=== PATIENT | female | born 1935 | race Caucasian/White ===

== ENCOUNTER 2016-06-16 08:00 | Outpatient (CLI) | payer MEDICARE, BC | END 2016-06-16 08:01 | disposition home or self-care (01) | DX: E03.9 Hypothyroidism, unspecified (principal); E78.5 Hyperlipidemia, unspecified; G43.909 Migraine, unspecified, not intractable, without status migrainosus; K21.9 Gastro-esophageal reflux disease without esophagitis ==

== ENCOUNTER 2016-10-02 12:25 | Outpatient (CLI) | payer MEDICARE, BC ==
--- NOTE | 2016-10-02 13:59 | XRAY Report ---
THREE VIEW RIGHT KNEE: 10/02/2016 CLINICAL INDICATION: Pain. FINDINGS: AP, lateral, and sunrise views of the right knee are compared to previous films of 016. There is no evidence of fracture or dislocation. The joint spaces are preserved. No effusion is prese nt. IMPRESSION: NORMAL RIGHT KNEE, UNCHANGED. JOB #: [id number] EXT JOB #:[id number]
--- NOTE | 2016-10-02 14:16 | XRAY Preliminary Report ---
Exam: XR Knee 3 View RT IMPRESSION: Minimal degenerative changes, much less than expected for age. [facility] SITE ID: [id number]
== END 2016-10-02 12:26 | disposition home or self-care (01) ==
LOC: DI 12:25
PROVIDERS: ATTEND Nurse Practitioner Family
DX: M25.561 Pain in right knee (principal)

== ENCOUNTER 2016-11-23 09:19 | Outpatient (CLI) | payer MEDICARE, BC ==
--- NOTE | 2016-11-23 16:05 | MRI Report ---
EXAM: RIGHT KNEE MRI WITHOUT CONTRAST EXAM DATE: 11/23/2016 10:00 AM. CLINICAL HISTORY: Right knee pain and locking for 3 years. COMPARISON: Right knee radiography from 10/02/2016. TECHNIQUE: Multiplanar, multisequence T1-weighted and fluid-sensitive sequences of the knee without c ontrast. Other: None. FINDINGS: Bones and articular cartilage: Focal grade 3-4 chondromalacia and mild subcortical marrow edema at th e anterior medial aspect of the medial tibial plateau. Focal grade 3-4 chondromalacia and minimal sub cortical marrow edema at the posteromedial aspect of the lateral tibial plateau. Grade 2-3 chondromal acia at the femoral condyles. Grade 3-4 chondromalacia and mild subcortical marrow edema at the media l patellar facet and medial trochlear facet. Full-thickness articular cartilage defects and/or fissur es within the femoral trochlear groove. No patellar subluxation. Enthesophytes at the anterosuperior aspect of the patella. Medial Meniscus: The medial meniscus is intact. Lateral Meniscus: The lateral meniscus is intact. Cruciate Ligaments: The anterior and posterior cruciate ligaments are intact. Collateral Ligaments: The medial collateral and lateral collateral ligamentous structures are intact. Tendons: The quadriceps, patellar, semimembranosus, and popliteus tendons are unremarkable. Musculature: No edema or fatty atrophy. Other: No effusion. No popliteal cyst. No loose bodies. The medial and lateral retinacula are intact . The subcutaneous tissues and fat pads are unremarkable. IMPRESSION: 1. Tricompartmental chondromalacia. 2. No ligament or meniscal injury. 3. Patellar enthesophytes. [facility] MUSCULOSKELETAL RADIOLOGY SECTION Referring Provider Line: [phone] SITE ID: [id number]
== END 2016-11-23 09:20 | disposition home or self-care (01) ==
LOC: DI 09:19
PROVIDERS: ATTEND Registered Nurse
DX: M94.261 Chondromalacia, right knee (principal); M76.891 Other specified enthesopathies of right lower limb, excluding foot

== ENCOUNTER 2016-11-23 09:21 | Outpatient (CLI) | payer MEDICARE, BC ==
--- NOTE | 2016-11-24 17:56 | Mammography Report ---
DIGITAL SCREENING MAMMOGRAM: 11/23/2016 CLINICAL INDICATION: A 81-year-old with history of left breast cancer status post lumpectomy and rad iation therapy for screening. COMPARISON: 10/2015, 11/2013, 09/2012, 09/2011, 09/2010, 10/2009, 08/2009. TECHNIQUE: Routine CC and MLO projections were obtained of the breasts. FINDINGS: The breasts demonstrate scattered fibroglandular densities bilaterally. Postoperative and posttreatment changes in the left breast are stable. Intramammary lymph nodes are stable. Coarse, typically benign calcifications are stable. No suspicious masses, clustered microcalcifications, or regions of architectural distortion are identified. IMPRESSION: BENIGN FINDINGS. RECOMMENDATION: Routine annual screening unless otherwise clinically indicated. BI-RADS category 2, benign findings. STANDARD QUALIFYING STATEMENTS 1. This examination was reviewed with the aid of Computer-Aided Detection (CAD). 2. A negative or benign imaging report should not delay biopsy if clinically suspicious findings are present. Consider surgical consultation if warranted. More than 5% of cancers are not identified by i maging. 3. Dense breasts may obscure an underlying neoplasm. JOB #: [id number] EXT JOB #:[id number]
== END 2016-11-23 09:22 | disposition home or self-care (01) ==
LOC: DI 09:21
PROVIDERS: ATTEND Registered Nurse
DX: Z12.31 Encounter for screening mammogram for malignant neoplasm of breast (principal); Z85.3 Personal history of malignant neoplasm of breast
CPT/HCPCS: 77067

== ENCOUNTER 2017-07-29 09:14 | Day surgery (SDC) | payer MEDICARE, BC ==
[~2017-07-29 09:14] MED LIST: BRIMONIDINE 0.2% OPHTH DROPS 5 ML ONE; BSS/LIDOCAINE/EPINEPHRINE 1 ML SYRINGE ONE; CYCLOPENTOLATE 1% OPHTH DROPS 2 ML ONE; EPINEPHrine 1 MG/ML AMP ONE; KETOROLAC 0.45% OPHTH DROPS ONE; PHENYLEPHRINE 2.5% OPHTH 2 ML DROPS ONE; PROPARACAINE 0.5% OPHTH DROPS 15 ML ONE; TIMOLOL 0.5% OPHTH DROPS ONE; TRIAMCIN/MOXIFLOX OPHTHALMIC 0.6 ML VIAL IO ONE
[2017-07-29] MEDS ORDERED: LACTATED RINGERS 500 ML IV ONE (09:42)
[2017-07-29] MEDS ORDERED: PHENYLEPHRINE 2.5% OPHTH 2 ML DROPS LEFTEYE ONE (09:50)
[2017-07-29] MEDS ORDERED: PROPARACAINE 0.5% OPHTH DROPS 15 ML LEFTEYE ONE ×2 (09:50→10:53)
[2017-07-29] MEDS ORDERED: KETOROLAC 0.45% OPHTH DROPS LEFTEYE ONE (09:50)
[2017-07-29] MEDS ORDERED: CYCLOPENTOLATE 1% OPHTH DROPS 2 ML LEFTEYE ONE (09:50)
[2017-07-29] MEDS ORDERED: MIDAZOLAM 2 MG/2 ML VIAL IVP ONE (10:45)
[2017-07-29] MEDS ORDERED: VANCOMYCIN OPHTHALMI 8MG/0.8ML 8 MG/0.8 ML SYRINGE IO ONE (10:51)
[2017-07-29] MEDS ORDERED: BSS/LIDOCAINE/EPINEPHRINE 1 ML SYRINGE IO ONE (10:52)
[2017-07-29] MEDS ORDERED: BRIMONIDINE 0.2% OPHTH DROPS 5 ML OPTH ONE (10:52)
[2017-07-29] MEDS ORDERED: EPINEPHrine 1 MG/ML AMP IR ONE (10:52)
[2017-07-29] MEDS ORDERED: CHONDR SULF/HYALURONATE SYRINGE IO ONE (10:53)
[2017-07-29] MEDS ORDERED: TIMOLOL 0.5% OPHTH DROPS OPTH ONE (10:53)
[2017-07-29 11:10] VITALS: BP 132/70
--- NOTE | 2017-07-29 16:51 | OPERATIVE REPORT ---
DATE OF SERVICE: 07/29/2017 Physician: Antonio Upton MD PREOPERATIVE DIAGNOSIS: Visually significant cataract, left eye. Cataract surgery was performed on the right eye on 31 October 2015. POSTOPERATIVE DIAGNOSIS: Visually significant cataract, left eye. Cataract surgery was performed on the right eye on 31 October 2015. PROCEDURE: Phacoemulsification with posterior chamber intraocular lens implant, left eye. SURGEON: Antonio Upton MD ANESTHESIA: Monitored anesthesia care. COMPLICATIONS: None. OPERATIVE INDICATIONS: This is an 82-year-old woman with progressive vision loss in the left eye due to 2+ nuclear sclerotic and vacuole cataract. Best corrected visual acuity was 20/30 with glare to 20/100 in the left eye. Indications for surgery are overall decrease in vision, difficulty reading; difficulty driving in low light or at night, difficulty driving at night because of headlights from other vehicles, and difficulty with glare or bright lights in any situation. She was consented at length concerning risks and benefits of cataract surgery. Afterward, she expressed a desire to proceed with surgery. OPERATIVE PROCEDURE: The patient was taken to OR #3 and placed under monitored anesthesia care. A surgical timeout was conducted confirming correct patient, correct procedure, and correct surgical site. She was given topical anesthesia, and then prepped and draped in the usual sterile fashion. The eye was entered at the 6 and 3 o'clock positions. Intracameral Shugarcaine was injected into the anterior chamber, followed by Viscoat. A continuous-tear curvilinear capsulorrhexis was performed. Nucleus was hydrodissected and phacoemulsified. The cortex was evacuated using automated infusion and aspiration. Provisc was injected in the capsular bag, and a 23.0 diopter intraocular lens was inserted in the bag. Approximately 0.7 mL of a mixture of triamcinolone and moxifloxacin and vancomycin was injected subconjunctivally in the superior quadrant for infection and inflammation prophylaxis. I and A was used to evacuate the viscoelastic material. The eye was inflated to physiologic pressure using balanced salt solution and found to be watertight. The patient was taken from the operating room in good condition and given postop instructions. TD: 07/29/2017 11:10
== END 2017-07-29 09:15 | disposition home or self-care (01) ==
LOC: SDS 09:14
PROVIDERS: ATTEND Ophthalmology
PROC: 08RK3JZ Replacement of Left Lens with Synthetic Substitute, Percutaneous Approach (ICD-10-PCS; principal; 2017-07-29 10:30)
DX: H25.812 Combined forms of age-related cataract, left eye (principal)
CPT/HCPCS: 66984; A9270; J3490; V2632

== ENCOUNTER 2017-08-11 09:45 | Outpatient (CLI) | payer MEDICARE, BC ==
--- NOTE | 2017-08-11 14:09 | MRI Report ---
Procedure Date: 08/11/2017 Accession Number: [id number] / [id number] Procedure: MRI - Knee LT W/O CPT Code: FULL RESULT: EXAM: LEFT KNEE MRI WITHOUT CONTRAST EXAM DATE: 08/11/2017 10:32 AM. CLINICAL HISTORY: Chronic knee pain. COMPARISON: None. TECHNIQUE: Multiplanar, multisequence T1-weighted and fluid-sensitive sequences of the knee without contrast. Other: None. FINDINGS: Bones: No fractures or subluxations. No marrow edema. No bone lesions. Articular Cartilage: Chondromalacia patellae grade 1 affecting the lateral patellar facet. Chondromalacia patella grade 3 in the interfacet ridge and medial facet. Mild thinning of the hyaline cartilage of the medial compartment. The lateral compartment cartilage appears normal. Medial Meniscus: Truncation of the free margin of the medial meniscus consistent with a tear. Oblique undersurface tear of the body of the medial meniscus. Lateral Meniscus: The lateral meniscus is intact. Cruciate Ligaments: The anterior and posterior cruciate ligaments are intact. Collateral Ligaments: The medial collateral and lateral collateral ligamentous structures are intact. Tendons: The quadriceps, patellar, semimembranosus, and popliteus tendons are unremarkable. Musculature: No edema or fatty atrophy. Other: Small joint effusion. No popliteal cyst. No loose bodies. The medial and lateral retinacula are intact. The subcutaneous tissues and fat pads are unremarkable. IMPRESSION: 1. Mild patellofemoral osteoarthritis. Minimal medial compartment osteoarthritis. 2. Degenerative tear of the body of the medial meniscus. [facility] MUSCULOSKELETAL RADIOLOGY SECTION
--- NOTE | 2017-08-11 14:24 | XRAY Report ---
Procedure Date: 08/11/2017 Accession Number: [id number] / [id number] Procedure: XR - Chest 2 View X-Ray CPT Code: 64360 FULL RESULT: EXAM: CHEST RADIOGRAPHY EXAM DATE: 08/11/2017 10:17 AM. CLINICAL HISTORY: Acute upper respiratory infection. COMPARISON: 12/03/2006. TECHNIQUE: 2 views. FINDINGS: Lungs/Pleura: No focal consolidation or evidence of edema. No pleural effusion or pneumothorax. Mediastinum: Normal cardiomediastinal contour. Other: Surgical clips in the left breast/axilla. IMPRESSION: No acute cardiopulmonary abnormality. [facility]
--- NOTE | 2017-08-11 14:35 | XRAY Report ---
Procedure Date: 08/11/2017 Accession Number: [id number] / [id number] Procedure: XR - Knee 3 View LT CPT Code: FULL RESULT: EXAM: LEFT KNEE RADIOGRAPHY EXAM DATE: 08/11/2017 10:18 AM. CLINICAL HISTORY: Left knee pain COMPARISON: None. TECHNIQUE: 3 views. FINDINGS: Bones: Suprapatellar spur. No fracture or bone lesion. Joints: Normal alignment. Joint spaces are maintained. No effusion. Soft Tissues: Unremarkable. IMPRESSION: No acute bony abnormality or significant arthritic change. [facility]
== END 2017-08-11 09:46 | disposition home or self-care (01) ==
LOC: DI 09:45
PROVIDERS: ATTEND Nurse Practitioner Family
DX: M17.12 Unilateral primary osteoarthritis, left knee (principal); S83.242A Other tear of medial meniscus, current injury, left knee, initial encounter; J06.9 Acute upper respiratory infection, unspecified
CPT/HCPCS: 71046

== ENCOUNTER 2017-09-16 08:57 | Outpatient (CLI) | payer MEDICARE, BC | END 2017-09-16 08:58 | disposition home or self-care (01) | LOC: DI 08:57 | PROVIDERS: ATTEND Registered Nurse | DX: R06.00 Dyspnea, unspecified (principal); I34.0 Nonrheumatic mitral (valve) insufficiency | CPT/HCPCS: 93306 ==

== ENCOUNTER 2018-09-08 13:28 | Outpatient (CLI) | payer MEDICARE, BC ==
--- NOTE | 2018-09-09 08:53 | DEXA Report ---
Reason: ASYMPTOMATIC MENOPAUSAL STATE Procedure Date: 09/08/2018 Accession Number: [id number] / [id number] Procedure: DEX - Dexa Spine and/or Hip CPT Code: FULL RESULT: EXAM: Dexa Spine and/or Hip DATE: 09/08/2018 1:58 PM CLINICAL HISTORY: ASYMPTOMATIC MENOPAUSAL STATE TECHNIQUE: Dual energy x-ray absorptiometry (DXA) was performed on a [employer] System. Regions measured are the AP Spine, femoral neck, and if needed forearm. COMPARISON: None. In accordance with the International Society for Clinical Densitometry (ISCD) guidelines, data from previous exams may be reanalyzed using current recommendations and techniques. This is done to allow a more accurate basis for comparison with the current study. FINDINGS: The data for the lumbar spine is as follows: BMD (g/cm/cm) T-SCORE Z-SCORE REGION L1 1.021 -0.9 0.6 L2 1.264 0.5 2.1 L3 1.307 0.9 2.4 L4 1.450 2.1 3.6 TOTAL 1.276 0.8 2.3 NOTE: All evaluable vertebrae are used for classification The data for the hip is as follows: BMD (g/cm/cm) T-SCORE Z-SCORE REGION Neck 0.811 -1.6 0.4 TOTAL 0.922 -0.7 1.2 NOTE: The femoral neck or total proximal femur, whichever is lowest, is used for classification. IMPRESSION: THE WHO CLASSIFICATION BASED ON THE INTERNATIONAL REFERENCE STANDARD IS OSTEOPENIA. THE FRACTURE RISK IS INCREASED. RECOMMENDATION: Patients with diagnosis of osteoporosis or osteopenia should have regular bone mineral density assessment. For those eligible for Medicare, routine testing is allowed once every 2 years. Testing frequency can be increased for patients who have rapidly progressing disease or for those who are receiving medical therapy to restore bone mass. COMMENT: World Health Organization (WHO) definitions for osteoporosis and osteopenia: NORMAL BMD: T-score at -1.0 or higher, fracture risk is low OSTEOPENIA BMD: T-score between -1.0 and -2.5, fracture risk is increased. OSTEOPOROSIS BMD: T-score at -2.5 or lower, fracture risk is high. National Osteoporosis Foundation recommends: 1. Obtain adequate dietary calcium (at least 1200 mg per day) and vitamin D (400-800 international units per day). 2. Participate, as appropriate, in regular weightbearing and muscle-strengthening exercise. 3. Avoid tobacco use and reduce alcohol and caffeine intake. 4. For more detailed information see the website at www.NOF.org.
== END 2018-09-08 13:29 | disposition home or self-care (01) ==
LOC: DI 13:28
PROVIDERS: ATTEND Registered Nurse
DX: M85.89 Other specified disorders of bone density and structure, multiple sites (principal); Z78.0 Asymptomatic menopausal state
CPT/HCPCS: 77080

== ENCOUNTER 2018-09-08 13:30 | Outpatient (CLI) | payer MEDICARE, BC ==
--- NOTE | 2018-09-09 08:11 | Mammography Report ---
Reason: ENCOUNTER FOR SCREENING MAMMOGRAM FOR MALIGNANT NE Procedure Date: 09/08/2018 Accession Number: [id number] / [id number] Procedure: KATIE - Screening Mammo w/Rod CPT Code: FULL RESULT: EXAM: Screening Mammo w/Rod DATE: 09/08/2018 2:12 PM CLINICAL HISTORY: Screening encounter. Personal history of left breast cancer status post lumpectomy in 2005 with radiation. TECHNIQUE: (B) - Bilateral CC and MLO views were obtained. Right laterally exaggerated CC views obtained. COMPARISON: 11/23/2016 through 10/19/2012. PARENCHYMAL PATTERN: (A) - The breast(s) demonstrate(s) scattered fibroglandular densities. FINDINGS: Posttreatment changes in the left breast are essentially unchanged, typically benign. There are no suspicious masses, calcifications, or areas of distortion. IMPRESSION: Benign findings. BI-RADS category 2. RECOMMENDATION: (ANNUAL) - Recommend routine annual screening mammography. BI-RADS CATEGORY: (2) - Benign Findings. STANDARD QUALIFYING STATEMENTS: 1. This examination was not reviewed with the aid of Computer-Aided Detection (CAD). 2. A negative or benign imaging report should not preclude biopsy if clinically suspicious findings are present. 3. Dense breasts may obscure an underlying neoplasm. 4. This examination was reviewed with the aid of 3D breast imaging (tomosynthesis).
== END 2018-09-08 13:31 | disposition home or self-care (01) ==
LOC: DI 13:30
PROVIDERS: ATTEND Registered Nurse
DX: Z12.31 Encounter for screening mammogram for malignant neoplasm of breast (principal); Z08 Encounter for follow-up examination after completed treatment for malignant neoplasm; Z85.3 Personal history of malignant neoplasm of breast
CPT/HCPCS: 77063; 77067

== ENCOUNTER 2019-11-20 09:32 | Outpatient (CLI) | payer MEDICARE, BC ==
--- NOTE | 2019-11-20 12:23 | XRAY Report ---
PROCEDURE: Knee Standing BILAT INDICATIONS: BILATERAL PRIMARY OSTEOARTHRITIS OF KNEE TECHNIQUE: 3 views of the left knee, and 3 views of the right knee. COMPARISON: Knee Xray 09/06/17 FINDINGS: Bones: No acute fractures or dislocations. No suspicious bony lesions. Joint spaces demonstrate mi ld bilateral medial compartment narrowing, relatively unchanged. Mild bilateral patellofemoral narrow ing. Small patellar spurs are noted. No erosions. Soft tissues: No knee joint effusions. No suspicious soft tissue calcification. IMPRESSION: Stable mild bilateral medial and patellofemoral narrowing, suggestive of osteoarthritis. Reviewed by: Yvonne Christina MD on 11/20/2019 12:22 PM PDT Approved by: Yvonne Christina MD on 11/20/2019 12:22 PM PDT Station ID: [id number]
== END 2019-11-20 09:33 | disposition home or self-care (01) ==
LOC: DI.S 09:32
PROVIDERS: ATTEND Registered Nurse
DX: M17.0 Bilateral primary osteoarthritis of knee (principal)
CPT/HCPCS: 73565

== ENCOUNTER 2020-09-03 14:00 | Outpatient (CLI) | payer MEDICARE, BC | END 2020-09-03 23:59 | disposition short-term general hospital (02) | LOC: EMS 14:00 | DX: R42 Dizziness and giddiness (principal); R07.9 Chest pain, unspecified; R29.91 Unspecified symptoms and signs involving the musculoskeletal system; R20.0 Anesthesia of skin | CPT/HCPCS: A0425; A0429 ==

== ENCOUNTER 2020-09-16 15:06 | Outpatient (CLI) | payer MEDICARE, BC ==
--- NOTE | 2020-09-16 18:16 | Ultrasound Report ---
PROCEDURE: Head or Neck Soft Tissue INDICATIONS: MULTINODULAR GOITER TECHNIQUE: Real-time scanning was performed of the thyroid gland, with image documentation. COMPARISON: None. FINDINGS: Right: Right thyroid lobe is heterogeneous and lobulated in appearance with simple ill-defined thyro id nodules. The largest 2 will be measured below. Right thyroid lobe measures 5.2 x 3.1 x 2.1 cm. Left: Left thyroid lobe is atrophied and heterogeneous in appearance. No focal nodules identified. L eft thyroid lobe measures 3.3 x 1.0 x 0.8 cm. Isthmus: 3 mm Thyroid nodules: Nodule 1: Right superior thyroid lobe. Size: 1.1 x 0.6 x 0.9 cm. Orientation: Wider than tall Composition: Solid Echogenicity: Hypoechoic Margins: Smooth Echogenic foci: None. Total points: 4 Overall assessment: TI-RADS 4, moderately suspicious. Nodule 2: Right mid/posterior Size: 2.1 x 1.5 x 1.6 cm Orientation: Wider than tall Composition: Solid Echogenicity: Isoechoic Margins: Smooth Echogenic foci: None Total points: 3 Overall assessment: TI-RADS 3, mildly suspicious IMPRESSION: Heterogeneous thyroid gland with atrophic left thyroid lobe. Multiple ill-defined thyroid nodules mos t pronounced on the right side with the 2 largest, measurable nodules identified. These nodules do no t meet consensus criteria for fine-needle aspiration at this time. Recommend continued clinical surve illance with imaging follow-up as described below. ACR TI-RADS definitions and recommendations: TI-RADS 1 (benign): 0 points. FNA not needed. TI-RADS 2 (not suspicious): 2 points. FNA not needed. TI-RADS 3 (mildly suspicious): 3 points. ? FNA if 2.5 cm or larger, follow up if 1.5 cm or larger (at 1, 3, and 5 years). TI-RADS 4 (moderately suspicious): 4-6 points. ? FNA if 1.5 cm or larger, follow up if 1 cm or larger (at 1, 2, 3, and 5 years). TI-RADS 5 (highly suspicious): 7 points or more. ? FNA if 1 cm or larger, follow up if 0.5 cm or larger (every year for 5 years). Reviewed by: Maxime Jasso MD on 09/16/2020 6:15 PM PDT Approved by: Maxime Jasso MD on 09/16/2020 6:15 PM PDT Station ID: [id number]
== END 2020-09-16 15:07 | disposition home or self-care (01) ==
LOC: DI 15:06
PROVIDERS: ATTEND Nurse Practitioner Family
DX: E04.2 Nontoxic multinodular goiter (principal)

== ENCOUNTER 2020-09-26 14:46 | Outpatient (CLI) | payer MEDICARE, BC ==
[2020-09-26 19:57] LABS: BASOPHILS % (AUTO) 0.8 %; EOSINOPHILS # (AUTO) 0.2 10^3/uL (0.0-0.7); HCT - HEMATOCRIT 39.8 % (37.0-47.0); HGB - HEMOGLOBIN 12.6 g/dL (12.0-16.0); LYMPHOCYTES # (AUTO) 1.2 10^3/uL (1.5-3.5); LYMPHOCYTES % (AUTO) 24.5 %; MEAN CORPUSCULAR HEMOGLOBIN 30.2 pg (27.0-31.0); MEAN CORPUSCULAR HGB CONC 31.7 g/dL (32.0-36.0); MEAN CORPUSCULAR VOLUME 95.4 fL (81.0-99.0); MEAN PLATELET VOLUME 12.2 fL (7.9-10.8); MONOCYTES # (AUTO) 0.4 10^3/uL (0.0-1.0); MONOCYTES % (AUTO) 7.3 %; NEUTROPHILS % (AUTO) 62.2 %; PLT - PLATELET COUNT 140 10^3/uL (130-450); RED BLOOD COUNT 4.17 10^6/uL (4.20-5.40); RED CELL DISTRIBUTION WIDTH 13.6 % (12.0-15.0); WHITE BLOOD COUNT 4.8 x10^3/uL (4.8-10.8)
[2020-09-26 20:27] LABS: THYROID STIMULATING HORMONE 0.65 uIU/mL (0.34-5.60)
[2020-09-26 20:29] LABS: FREE T3 3.41 pg/mL (2.5-3.9); FREE T4 (FREE THYROXINE) 1.26 ng/dL (0.58-1.64)
== END 2020-09-26 14:47 | disposition home or self-care (01) ==
LOC: LAB.S 14:46
PROVIDERS: ATTEND Nurse Practitioner Family
DX: E04.2 Nontoxic multinodular goiter (principal); D69.6 Thrombocytopenia, unspecified
CPT/HCPCS: 36415; 84439; 84443; 84481; 85025

== ENCOUNTER 2020-10-08 09:50 | Outpatient (CLI) | payer MEDICARE, BC ==
[2020-10-08 10:41] VITALS: BP 121/65
--- NOTE | 2020-10-08 10:41 | SLEEP CARE CONSULTATION ---
Information from patient questionnaire entered by Reyna Nagy. I have reviewed and concur with the information entered by Reyna Nagy. This document represents the service I personally performed and the decisions made by me, Rayne Jhaveri ARNP. History of Present Illness Service Date and Time: 10/08/2020 0950 Reason for Visit: New patient Chief Complaint: reports: Unrefreshed sleep, Snoring (thinks she does, when really tired), Fatigue, Other (pain) Date of Onset: 1 year Usual bedtime: 9-10 pm Time it takes to fall asleep: 30 minutes Snores at night: Yes Observed to quit breathing while asleep: No Sleeps alone due to snoring: No Number of times waking at night: 3 Reasons for waking at night: reports: Pain (knee), Bathroom. denies: Choking, Gasping for air Toss, Turn, or Twitch while sleeping: Yes Recalls having dreams: Yes (sometimes) Usually gets out of bed at: 5-6 am Feels refreshed in the morning: No Morning headache: No Sleepy or fatigued during the day: Yes Ever fallen asleep while driving: No Takes day naps: Yes (sometimes; couple times a month) Dreams during day naps: No Prior sleep studies: No Additional HPI information: I had the pleasure of seeing POLA BERRY today regarding the possibility of her having a sleep disorder. Her current complaints are unrefreshed sleep and fatigue. She had a TIA and was sent here to see if she has TERELL. She snores but has not been told she has pauses in breathing when sleeping. She awakens several times a night due to knee pain. She is scheduled to have knee surgery November 07. She states her son has sleep apnea and is treated with PAP device. - Parasomnia Symptoms Ever been unable to move upon waking from sleep: No Walks in sleep: No Talks in sleep: No Ever acted out dreams in sleep: No Ever felt weak in the knees when startled or emotional: No Bothered by creepy, crawly, restless sensations in legs: No Problems with memory or concentration: Yes (coming on gradually; more memory, bill since TIA but is improving) Subjective Initial Pool Sleepiness Scale score: 8 (in 2020) Past Medical History Past Medical History: reports: Arthritis, Other (TIA - 09/03/20) Social History The patient's occupation is a Retired. Patient is and lives in [place]. Have you smoked in the past 12 months: No Alcohol use: No Caffeine use: Yes Caffeine amount and frequency: 2 cups of coffee a day Family History Family history of sleep disordered breathing: Yes Family Hx Sleep Apnea: Other: Sleep apnea - Treated (son) Allergies and Home Medications Drug allergies reviewed: Yes (Sulfa) Home medication list reviewed: Yes Allergy and home medication list: Aspirin 81 mg daily Atorvastatin 20 mg nightly Levothyroxine 88 mcg daily Review of Systems Weight gain over past 5 years: 5 Weight loss over past 5 years: 5 Cardiovascular: denies: high blood pressure Gastrointestinal: denies: heartburn Urinary: reports: frequency, urgency Neurological: reports: headaches Ear/Nose/Throat: reports: dry mouth/throat, tonsillectomy, wisdom teeth removed. denies: injury to nose Endocrine: reports: thyroid disease, sluggishness Musculoskeletal: reports: joint pain Immunologic: denies: allergies to food or environment Physical Exam Blood Pressure: 121/65 Cuff size: wrist Heart Rate: 58 O2 Saturation: 94 Height: 5 ft 3 in Weight: 149 lb 12.8 oz Body Mass Index: 26.5 BMI Classification: Overweight Neck circumference: 14 (inches) Mouth and throat: narrow oropharynx Soft palate: long Hard palate: arched Uvula: normal Uvula visualization: 50% Mallampati Class II Tongue: normal in size Tonsils: absent bilaterally Neck: normal w/o lymphadenopathy or thyromegaly Heart: regular rate and rhythm Lungs: clear bilaterally Impression and Plan 1. Suspected Obstructive Sleep Apnea-Hypopnea Syndrome, as snoring, frequent awakening during the night, unrefreshed sleep, and cognitive impairment. Narrow oropharynx and obesity are common predisposing factors for obstructive sleep apnea-hypopnea syndrome. I recommend proceeding to polysomnography to confirm the diagnosis and to assess severity. Patient is scheduled to have knee surgery in about 1 month. She would like to schedule the sleep study after she recovers from her surgery. She is to call the office when ready to schedule. She was told that she need to have this done in the next 6 months. If the patient has significant sleep disordered breathing, a manual CPAP titration study will also be performed to find the optimal treatment pressure. I informed the patient of what the sleep studies involve and after some discussion, obtained agreement to proceed. The pathophysiology of obstructive sleep apnea-hypopnea syndrome was discussed with the patient and health risks of cardiovascular and cerebrovascular disease if not treated. Risks of drowsy driving discussed in detail and patient advised to avoid long distance driving and to veneer puller at the first sign of drowsiness. Patient agreed to plan. * Schedule polysomnography +- manual CPAP titration study and return in 1-2 weeks after the study to discuss result and initiate therapy. * Avoid long distance driving or driving when feeling sleepy. * Avoid sedative and muscle relaxant around bedtime. * Attempt to lose weight. * Review instructions provided by trained office staff on how to prepare for the sleep study. * Return for follow-up after sleep study completed. Counseling Topics: Weight loss health impact Visit Type: In Office Time Spent with Patient (minutes): 32 Provider Statement: I spent 100% of the Face to Face Visit with the patient with greater than 50% spent counseling the patient and coordination of care.
== END 2020-10-08 09:51 | disposition home or self-care (01) ==
LOC: SC 09:50
PROVIDERS: ATTEND Nurse Practitioner Family
DX: G47.8 Other sleep disorders (principal); R06.83 Snoring; R41.89 Other symptoms and signs involving cognitive functions and awareness
CPT/HCPCS: 99203; G0463; 99212

== ENCOUNTER 2021-01-02 10:44 | Outpatient (CLI) | payer MEDICARE, BC ==
--- NOTE | 2021-01-03 08:25 | Mammography Report ---
BILATERAL DIGITAL DIAGNOSTIC MAMMOGRAM 3D/2D: 01/02/2021 CLINICAL: Palpable left breast lump. Comparison is made to exams dated: 09/08/2018 mammogram, 11/23/2016 mammogram, 11/12/2015 mammogram, mammogram - [facility], 09/24/2011 mammogram, and 09/24/2011 ultrasound - [facility] . The tissue of both breasts is predominantly fatty. There is a new 1 cm asymmetry in the left breast posterior depth superior region seen on the mediolat eral oblique view only. There also is a post-surgical scar in the left breast posterior depth superior region seen on the med iolateral oblique view only. There are surgical clips associated with the post-surgical scar. No other significant masses, calcifications, or other findings are seen in either breast. IMPRESSION: INCOMPLETE: NEEDS ADDITIONAL IMAGING EVALUATION The new 1 cm asymmetry in the left breast posterior depth superior region seen on the mediolateral ob lique view only is indeterminate. An ultrasound is recommended. This exam was interpreted at Station ID: [id number]. NOTE: For mammograms, a report in lay terms will be sent to the patient. Approximately 15% of breast malignancies will not be visualized mammographically. In the management of a palpable breast mass, a negative mammogram must not discourage biopsy of a clinically suspicious lesion. Electronically Signed By: Jun Valdes M.D., jr/sushil:01/02/2021 15:08:39 ACR BI-RADS Category 0: Incomplete 3340F PARENCHYMAL PATTERN: (F) - The breast(s) demonstrate(s) diffuse fatty replacement. BI-RADS CATEGORY: (0) - 0 Ultrasound [id number] Immediate follow-up LATERALITY: (B)
--- NOTE | 2021-01-03 08:25 | Ultrasound Report ---
LIMITED ULTRASOUND OF LEFT BREAST AND AXILLA: 01/02/2021 CLINICAL: Palpable left breast lump. Comparison is made to exams dated: 01/02/2021 mammogram, 09/08/2018 mammogram, 11/23/2016 mammogram, mammogram, 12/01/2013 mammogram - [facility], and 09/24/2011 mammogram - [facility] a. Color flow and real-time ultrasound of the left breast 1 o'clock, and axilla regions were performed. Yan scale images of the real-time examination were reviewed. No sonographic correlate for the new asymmetry in the left breast seen mammographically. IMPRESSION: SUSPICIOUS OF MALIGNANCY Stereotactic biopsy recommended for the new asymmetry near the lumpectomy site in the left breast. This exam was interpreted at Station ID: [id number]. Electronically Signed By: Jun Valdes M.D. jr/:01/02/2021 15:11:15 Ultrasound BI-RADS: 4 Suspicious for malignancy BI-RADS CATEGORY: (4) - 4 None [id number] Immediate follow-up LATERALITY: ()
== END 2021-01-02 10:45 | disposition home or self-care (01) ==
LOC: DI 10:44
PROVIDERS: ATTEND Registered Nurse
DX: R92.8 Other abnormal and inconclusive findings on diagnostic imaging of breast (principal); N63.25 Unspecified lump in the left breast, overlapping quadrants

== ENCOUNTER 2021-08-08 10:17 | Outpatient (CLI) | payer MEDICARE, BC ==
[2021-08-08 14:49] LABS: BASOPHILS # (AUTO) 0.1 10^3/uL (0.0-0.1); BASOPHILS % (AUTO) 0.9 %; EOSINOPHILS # (AUTO) 0.2 10^3/uL (0.0-0.7); EOSINOPHILS % (AUTO) 4.1 %; HCT - HEMATOCRIT 39.6 % (37.0-47.0); HGB - HEMOGLOBIN 12.9 g/dL (12.0-16.0); LYMPHOCYTES # (AUTO) 1.3 10^3/uL (1.5-3.5); LYMPHOCYTES % (AUTO) 23.1 %; MEAN CORPUSCULAR HEMOGLOBIN 30.4 pg (27.0-31.0); MEAN CORPUSCULAR HGB CONC 32.6 g/dL (32.0-36.0); MEAN CORPUSCULAR VOLUME 93.2 fL (81.0-99.0); MONOCYTES # (AUTO) 0.4 10^3/uL (0.0-1.0); MONOCYTES % (AUTO) 6.6 %; NEUTROPHILS # (AUTO) 3.7 10^3/uL (1.5-6.6); NEUTROPHILS % (AUTO) 65.3 %; PLT - PLATELET COUNT 142 10^3/uL (130-450); RED BLOOD COUNT 4.25 10^6/uL (4.20-5.40); RED CELL DISTRIBUTION WIDTH 13.5 % (12.0-15.0); WHITE BLOOD COUNT 5.6 x10^3/uL (4.8-10.8)
[2021-08-08 15:13] LABS: ALBUMIN 3.9 g/dL (3.2-5.5); BUN - BLOOD UREA NITROGEN 18 mg/dL (6-20); CALCIUM 9.2 mg/dL (8.5-10.3); CARBON DIOXIDE - CO2 28 mmol/L (21-32); CHLORIDE 107 mmol/L (101-111); CHOL/HDL RATIO 2.4 (<4.4); CHOLESTEROL 135 mg/dL; CREATININE 1.1 mg/dL (0.4-1.0); GFR - MDRD 47 (>89); GLUCOSE 117 mg/dL (70-100); HDL CHOLESTEROL 57 mg/dL; LDL CHOLESTEROL,CALCULATED 60 mg/dL; LDL/HDL RATIO 1.1 (<4.4); PHOSPHORUS 3.5 mg/dL (2.5-4.6); POTASSIUM 4.1 mmol/L (3.5-5.0); SODIUM 144 mmol/L (135-145); TRIGLYCERIDES 88 mg/dL; VLDL CHOLESTEROL 18 mg/dL
[2021-08-08 15:29] LABS: THYROID STIMULATING HORMONE 2.65 uIU/mL (0.34-5.60)
[2021-08-08 22:09] LABS: ESTIMATED AVERAGE GLUCOSE 123 mg/dL (70-100); HEMOGLOBIN A1c% 5.9 % (4.27-6.07)
[2021-08-09 07:08] LABS: HCV AB <0.1 s/co ratio (0.0-0.9)
== END 2021-08-08 10:18 | disposition home or self-care (01) ==
LOC: LAB.S 10:17
PROVIDERS: ATTEND Registered Nurse
DX: G43.B0 Ophthalmoplegic migraine, not intractable (principal); Z11.59 Encounter for screening for other viral diseases; E78.5 Hyperlipidemia, unspecified; E03.9 Hypothyroidism, unspecified; N18.30 Chronic kidney disease, stage 3 unspecified; R73.03 Prediabetes
CPT/HCPCS: 36415; 80061; 80069; 82607; 83036; 83721; 83921; 84443; 85025; 86803

== ENCOUNTER 2021-08-22 11:22 | Outpatient (CLI) | payer MEDICARE, BC ==
[2021-08-22 12:33] VITALS: BP 129/86
--- NOTE | 2021-08-22 12:33 | SLEEP CARE CONSULTATION ---
Information from patient questionnaire entered by Arnel Aguiar MA. I have reviewed and concur with the information entered by Arnel Aguiar MA. This document represents the service I personally performed and the decisions made by , Rayne Jhaveri ARNP. History of Present Illness Service Date and Time: 08/22/2021 1122 Reason for follow up: other (11 month f/u, re order ss?, ) Prior sleep studies: No HPI additional information: I had the pleasure of seeing POLA BERRY today regarding the possibility of her having a sleep disorder. Her current complaints are unrefreshed sleep, snoring and fatigue. She has a history of a TIA. She was seen back in September 2020 and a sleep study was ordered but never completed. She returns today for follow up. The patient tells me that she normally goes to bed around 9:30-10 pm, and it takes her approximately 15-30 minutes to fall asleep. She has been told that she snores loudly and irregularly at night. She has not been observed to stop breathing in her sleep. Her bed partner can still sleep in the same bed. She can recall waking up on the average of 1-2 times during the night. Most of the time she wakes up because of new dog and bathroom. She has not awakened for her own snoring, choking, and having to gasp for air. There is a lot of tossing and turning in her sleep. Generally she can recall having dreams sometimes, not often. She usually wakes up at 5-6 AM and does not feel refreshed. She usually does have a morning headache about 3 times a month. She has a history of migraines. During the day she complains of feeling sleepy and fatigued. She has never fallen asleep while driving nor has any accident due to sleepiness. She usually does not take naps during the day. She reports having impaired memory during the day from getting distracted. There is no somniloquy (sleep talking) or somnambulism (sleep walking). She has never experienced sleep paralysis, cataplexy, or symptoms of restless leg syndrome. Sleep Study - Results Prior sleep studies: No Subjective Initial Normal Sleepiness Scale score: 8 (in 2020) Current Normal Sleepiness Scale score: 7 (08/22/2021) Allergies and Home Medications Known drug allergies: Yes (SULFA) Drug allergies reviewed: Yes Home medication list reviewed: Yes (no changes) Allergy and home medication list: Allergies Sulfa (Sulfonamide Antibiotics) Allergy (Verified 10/31/15 07:05) Rash Review of Systems Review of systems same as previous: No (TIA 2020, [facility], KNEE REPLACEMENT 2020) Physical Exam Vital signs obtained and entered by: Conner Aguiar CMA AAALONDRA Blood Pressure: 129/86 (RIGHT, PULSE 60, RESP 18, ) Heart Rate: 62 O2 Saturation: 98 (PAPER ABILIO) Height: 5 ft 3 in Weight: 136 lb 8 oz Weight change since last visit: IS LOSING WEIGHT DUE TO COOKING NUTR. Body Mass Index: 24.1 BMI Classification: Healthy weight Impression and Plan 1. Suspected Obstructive Sleep Apnea-Hypopnea Syndrome, as suggested by a history of irregular snoring, morning headache, unrefreshed sleep, cognitive impairment, and excessive daytime sleepiness. Patient did not complete sleep study when ordered previously but continues to have symptoms consistent with sleep disordered breathing. I recommend proceeding to polysomnography to confirm the diagnosis and to assess severity. If the patient has significant sleep disordered breathing, a manual CPAP titration study will also be performed to find the optimal treatment pressure. I informed the patient of what the sleep studies involve and after some discussion, obtained agreement to proceed. The pathophysiology of obstructive sleep apnea-hypopnea syndrome was discussed with the patient and health risks of cardiovascular and cerebrovascular disease if not treated. Risks of drowsy driving discussed in detail and patient advised to avoid long distance driving and to pin puller at the first sign of drowsiness. Patient agreed to plan. * Schedule polysomnography * Avoid long distance driving or driving when feeling sleepy. * Avoid alcohol, sedative and muscle relaxant around bedtime. * Attempt to lose weight. * Review instructions provided by trained office staff on how to prepare for the sleep study. * Return for follow-up after sleep study completed. Counseling Topics: Weight loss health impact Visit Type: In Office Time Spent with Patient (minutes): 20 Provider Statement: I spent 100% of the Face to Face Visit with the patient with greater than 50% spent counseling the patient and coordination of care.
== END 2021-08-22 11:23 | disposition home or self-care (01) ==
LOC: SC 11:22
PROVIDERS: ATTEND Nurse Practitioner Family
DX: G47.10 Hypersomnia, unspecified (principal); R53.83 Other fatigue; R06.83 Snoring; G47.8 Other sleep disorders
CPT/HCPCS: 99213; G0463; 99212

== ENCOUNTER 2021-08-26 19:28 | Outpatient (CLI) | payer MEDICARE, BC | END 2021-08-26 19:29 | disposition home or self-care (01) | LOC: SC 19:28 | PROVIDERS: ATTEND Nurse Practitioner Family | DX: G47.61 Periodic limb movement disorder (principal) | CPT/HCPCS: 95810 ==

== ENCOUNTER 2021-09-11 14:04 | Outpatient (CLI) | payer MEDICARE, BC ==
[2021-09-11 14:53] VITALS: BP 145/78
--- NOTE | 2021-09-11 14:53 | SLEEP CARE CONSULTATION ---
Information from patient questionnaire entered by Arnle Aguiar MA. I have reviewed and concur with the information entered by Arnel Aguiar MA. This document represents the service I personally performed and the decisions made by Shakila freeman Caren J, ARNP. History of Present Illness Service Date and Time: 09/11/2021 1404 Initial [facility] Sleepiness Scale score: 8 (in 2020) Current [facility] Sleepiness Scale score: 5 (09/11/2021) Additional HPI information: POLA BERRY returns for follow up and results of the recently performed polysomnography. The patient was informed of the following findings: No significant sleep disordered breathing with an average AHI of 1.4 and leonora oxygen saturation of 87%. Patient did not sleep supine during the study, had light to moderate snoring noted and severe periodic leg movements of sleep. I explained the pathophysiology behind obstructive sleep apnea. Patient does not have sleep apnea and was advised how weight gain could increase the risk of developing sleep apnea in the future. Patient has light to moderate snoring. Snoring can be reduced by weight loss. Weight loss is best achieved with diet consult. Patient instructed to contact PCP for referral. Snoring can also be treated with an oral appliance from a dentist. Advised to check insurance coverage. In addition, an ENT evaluation can be do to see if other treatment is indicated. Patient does not drink alcohol. Patient was cautioned about risks of drowsy driving until sleepiness symptoms resolve. Patient denies drowsy driving. Sleep Study - Results Type of Sleep Study: Polysomnography (F/U POLY, 08/26/2021 [facility], [place],) Prior sleep studies: No Polysomnography/Home Sleep Study results: IMPRESSION: The quality of the study is good. The patient had slightly reduced sleep efficiency due to a few awakenings during the night. The sleep architecture was relatively normal considering the first-night effect. Respiratory monitoring showed no significant sleep disordered breathing (AHI = 1.4) or hypoxia (leonora oxygen saturation of 87% and only 0.35% to the total sleep time was spent with oxygen saturation below 90%). The few respiratory events occurred mainly during REM sleep. The patient only slept prone during this study. Snore was light to moderate in intensity. There was severe periodic leg movement of sleep not associated with sleep fragmentation. Cardiac rhythm was normal sinus rhythm without significant arrhythmia. No abnormal behavior (parasomnia) observed during the night. Allergies and Home Medications Known drug allergies: Yes (SULFAS) Drug allergies reviewed: Yes Home medication list reviewed: Yes (no changes) Allergy and home medication list: Allergies Sulfa (Sulfonamide Antibiotics) Allergy (Verified 10/31/15 07:05) Rash Review of Systems Review of systems same as previous: Yes (no changes) Physical Exam Vital signs obtained and entered by: Conner AGUIAR CMA AAALONDRA Blood Pressure: 145/78 (RESP 20, PULSE 58, RIGHT) Cuff size: wrist Heart Rate: 56 O2 Saturation: 97 (PAPER MASK) Height: 5 ft 3 in Weight: 138 lb (CLOTHES) Weight change since last visit: MAINTAIN Body Mass Index: 24.4 BMI Classification: Healthy weight Impression and Plan 1. Periodic limb movement, severe, that did not fragment patients sleep. Periodic limb movement of sleep (PLMS) is characterized by episodes of repetitive limb movements that occur during sleep and usually involve the lower limbs. The etiology is unknown but can be associated with restless leg syndrome (RLS), neuropathy, spinal cord diseases, kidney disease, rheumatological disorders, narcolepsy, obstructive sleep apnea, and REM sleep behavior disorder. Caffeine can also aggravate PLMS and should be avoided. Sleep hygiene methods can also improve sleep as well as lifestyle changes such as regular exercise. Patient was advised that no treatment is needed at this time. If symptoms increase, then further evaluation is indicated. 2. Snoring but no significant sleep disordered breathing. We cannot rule out sleep disordered breathing when sleeping supine because patient did not send any time on her back. She slept the whole study on her stomach. She states she normally does this because otherwise she has pain in her knees and back. Patient advised that often weight loss will reduce snoring as well as apnea risk. An oral appliance can also be used for snoring. This would require a dental consultation. Patient cautioned not to use other online appliances as can cause bite issues. A list of accredited dentists in area and one local dentist who makes oral appliances given. Patient is advised to check if insurance will cover. An ENT consult can also be helpful to determine if any other treatment is an option. * Continue to sleep prone * Follow up with PCP for severe PLMs for further evaluation as needed * Return as needed for follow up. Counseling Topics: Sleeping position, Weight control Visit Type: In Office Time Spent with Patient (minutes): 20 Provider Statement: I spent 100% of the Face to Face Visit with the patient with greater than 50% spent counseling the patient and coordination of care.
== END 2021-09-11 14:05 | disposition home or self-care (01) ==
LOC: SC 14:04
PROVIDERS: ATTEND Nurse Practitioner Family
DX: G47.61 Periodic limb movement disorder (principal); R06.83 Snoring
CPT/HCPCS: 99213; G0463; 99212

== ENCOUNTER 2022-08-05 10:00 | Outpatient (CLI) | payer MEDICARE, BC ==
--- NOTE | 2022-08-05 16:42 | XRAY Report ---
PROCEDURE: Cervical Spine 2 View INDICATIONS: NECK PAIN TECHNIQUE: 3 view(s) of the cervical spine were acquired. COMPARISON: None. FINDINGS: Bones: No fractures or dislocations to the T1 level. Degenerative endplate changes and loss of disc height with bilateral facet hypertrophic changes are noted throughout cervical spine more notably at C4-5 and C5-6 levels. The lateral masses of C1 appear intact on the odontoid view. No suspicious [place] lesions. Soft tissues: No prevertebral soft tissue swelling. IMPRESSION: Degenerative disc disease throughout cervical spine as above. No acute fracture or dislo cation. No gross soft tissue abnormalities. Reviewed by: Avelino Fuller MD on 08/05/2022 4:41 PM PDT Approved by: Avelino Fuller MD on 08/05/2022 4:41 PM PDT Station ID: [id number]
--- NOTE | 2022-08-05 16:43 | XRAY Report ---
PROCEDURE: Lumbar Spine 2 View INDICATIONS: INCONTIENCE OF FECES TECHNIQUE: 2 views of the lumbar spine were acquired. COMPARISON: None. FINDINGS: Bones: 5 [id number] vertebrae are present. There is 5 mm retrolisthesis of L2 on L3 and L3 on L4 is seen. Loss of disc height, degenerative endplate changes and bilateral facet arthrosis througho ut lumbar spine is seen most notably at L4-5 and L5-S1 levels.. No vertebral body compression fractu res. No suspicious bony lesions. Soft tissues: Overlying bowel gas pattern is normal. No suspicious soft tissue calcifications. IMPRESSION: Degenerative disc disease throughout lumbar spine as above. No acute compression fractur e. Likely degenerative grade 1 retrolisthesis at L2-3 and L3-4 levels. Reviewed by: Avelino Fuller MD on 08/05/2022 4:42 PM PDT Approved by: Avelino Fuller MD on 08/05/2022 4:42 PM PDT Station ID: [id number]
== END 2022-08-05 10:01 | disposition home or self-care (01) ==
LOC: DI.S 10:00
PROVIDERS: ATTEND Registered Nurse
DX: R15.9 Full incontinence of feces (principal); M50.321 Other cervical disc degeneration at C4-C5 level; M51.36 Other intervertebral disc degeneration, lumbar region

== ENCOUNTER 2022-08-19 14:19 | Outpatient (CLI) | payer MEDICARE, BC ==
--- NOTE | 2022-08-19 20:45 | MRI Report ---
PROCEDURE: CERVICAL SPINE WO INDICATIONS: NECK PAIN TECHNIQUE: Noncontrast sagittal T1 spin echo and T2 fast spin echo, sagittal STIR, foraminal oblique sagittal T2 fast spin echo, and axial gradient echo or T2 fast spin echo through the cervical spine. COMPARISON: Cervical spine radiograph dated 08/05/2022. FINDINGS: Image quality: Excellent. Alignment and Curvature: There is normal bony alignment. Bone Marrow: There is no marrow edema. No acute vertebral body compression fracture. Spinal Cord: Visualized spinal cord has normal size and signal. No cerebellar tonsillar herniation. Paraspinous Soft Tissues: No paravertebral masses. Prevertebral soft tissues are normal in thicknes s. C2-C3: Normal in appearance. C3-C4: Loss of disc signal in disc height. Broad-based, more left-sided disc bulge is seen with mil d central canal stenosis and [id number] left-sided neural foraminal narrowing. C4-C5: Loss of disc signal and disc height is seen. Broad-based disc bulge and bilateral facet hyper trophic changes are seen causing [id number] central canal stenosis and bilateral neural foramin al narrowing. C5-C6: Loss of disc height and disc signal is seen. Broad-based disc bulge and bilateral facet hyper trophic changes are seen causing moderate central stenosis and left-sided neural foraminal narrowing. C6-C7: There is loss of disc height and disc signal. Broad-based disc bulge and bilateral facet hype rtrophic changes are noted. Mild to moderate central canal stenosis and the lateral neuroforamina see n. C7-T1: Loss of disc signal. No significant disc bulge, canal stenosis or neural foraminal narrowing. IMPRESSION: 1. Degenerative disc disease throughout cervical spine causing various degrees of central canal steno sis and bilateral neural foraminal narrowing as described above. 2. No marrow edema. No acute compression fracture or spondylolisthesis. 3. No abnormal cervical spinal cord signal. Reviewed by: Avelino Fuller MD on 08/19/2022 8:44 PM PDT Approved by: Avelino Fuller MD on 08/19/2022 8:44 PM PDT Station ID: [id number]
== END 2022-08-19 14:20 | disposition home or self-care (01) ==
LOC: DI 14:19
PROVIDERS: ATTEND Registered Nurse
DX: M50.31 Other cervical disc degeneration, high cervical region (principal); M48.02 Spinal stenosis, cervical region